=== PATIENT | male | born 2000 | race Caucasian/White ===

== ENCOUNTER 2021-08-19 10:40 | Emergency (ER) | payer OTHER, BC ==
[2021-08-19 11:14] LABS: CHLORIDE,CL 106 mEq/L (98-106); SODIUM,NA 143 mEq/L (136-145)
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
== END 2021-08-19 12:35 | disposition home or self-care (01) ==
LOC: CC.ED 10:40
DX: R51.9 Headache, unspecified (principal); Z88.0 Allergy status to penicillin
CPT/HCPCS: 36415; 70450; 71045; 72125; 72170; 80053; 82150; 83605; 85025; 85610; 99284-25